=== PATIENT | female | born 1995 | race African-American/Black ===

== ENCOUNTER 2018-11-08 19:38 | Emergency (ER) | payer MEDICAID ==
[~2018-11-08] VITALS: Ht 154.9 cm; Wt 42.7 kg
[2018-11-08] MEDS ORDERED: FAMOTIDINE 20MG/2ML VIAL IV STA (22:53)
[2018-11-08] MEDS ORDERED: ONDANSETRON HCL 4MG/2ML INJ IV STA (22:53)
[2018-11-08] MEDS ORDERED: SODIUM CHLORIDE 0.9% 1,000 ML IV ONE (22:53)
[2018-11-08] MEDS ORDERED: MAGNESIUM/ALUMINUM HYDROXIDE/SIMETHICONE 30ML UDC PO STA (22:53)
[2018-11-08 23:46] LABS: BASOPHILS % 0.2 % (0.0-2.0); EOSINOPHILS % 0.1 % (0.0-5.0); HEMATOCRIT. 39.3 % (36.0-48.0); HEMOGLOBIN. 13.5 g/dL (12.0-16.0); LYMPHOCYTES % 15.5 % (20.0-50.0); MEAN CORPUSCULAR HEMOGLOBIN 27.9 pg (28.0-32.0); MEAN CORPUSCULAR VOLUME 81.2 fL (81.0-99.0); MEAN PLATELET VOLUME 8.4 fl (7.4-10.4); MONOCYTES % 7.8 % (2.0-8.0); NEUTROPHILS % 76.4 % (40.0-76.0); PLATELET 236 x1000/uL (130-400); RED BLOOD CELL COUNT 4.84 mill/uL (4.2-5.4); RED CELL DISTRIBUTION WIDTH 13.7 % (11.6-14.6)
[2018-11-08 23:52] LABS: INR 1.1; PROTHROMBIN TIME 11.4 sec (9.6-11.0)
[2018-11-08 23:54] LABS: CHLORIDE 99 mEq/L (98-107)
[2018-11-08 23:57] LABS: ETHANOL BLOOD < 10 mg/dL
[2018-11-09 00:13] LABS: CLARITY URINE CLOUDY (CLEAR); COLOR URINE YELLOW (YELLOW); KETONES URINE 2+ (NEGATIVE); LEUKOCYTE ESTERASE URINE NEGATIVE (NEGATIVE); NITRITE URINE NEGATIVE (NEGATIVE); OCCULT BLOOD URINE TRACE (NEGATIVE); PROTEIN URINE 1+ (NEGATIVE); SPECIFIC GRAVITY URINE 1.034 (1.005-1.030)
[2018-11-09 00:14] LABS: HCG SCREEN NEGATIVE
[2018-11-09 00:44] LABS: *AMPHETAMINES SCREEN URINE NEGATIVE (NEGATIVE); *BARBITURATES SCREEN URINE NEGATIVE (NEGATIVE); *BENZODIAZEPINES SCREEN URINE NEGATIVE (NEGATIVE); *COCAINE SCREEN URINE NEGATIVE (NEGATIVE)
[2018-11-09 00:45] LABS: METHADONE URINE SCREEN NEGATIVE (NEGATIVE); OPIATES URINE SCREEN NEGATIVE (NEGATIVE); PHENCYCLIDINE URINE SCREEN NEGATIVE (NEGATIVE)
[2018-11-09] MEDS ORDERED: CEFTRIAXONE 1 G PREMIX 50 ML IV ONE (00:45)
[2018-11-09 00:54] LABS: CANNABINOID URINE SCREEN PRESUMTIVE POSITIVE (NEGATIVE)
[2018-11-09] MEDS ORDERED: ONDANSETRON 4MG ODT PO ONE (03:30)
[2018-11-09 03:49] VITALS: BP 129/82
== END 2018-11-09 04:13 | disposition home or self-care (01) ==
LOC: ER 19:38
DX: R53.1 Weakness (principal); N39.0 Urinary tract infection, site not specified; E86.0 Dehydration; F12.10 Cannabis abuse, uncomplicated; Z59.0 Homelessness
CPT/HCPCS: 36415; 80053; 80305; 80320; 81003; 83690; 84703; 85025; 85610; 96361; 96365; 96375; 99283; J0696; J2405; J3490; J7030; Q0162; G0480

== ENCOUNTER 2019-03-19 19:26 | Emergency (ER) | payer MEDICAID ==
[~2019-03-19] VITALS: Ht 152.4 cm; Wt 44.5 kg
[2019-03-19 20:31] LABS: CLARITY URINE CLOUDY (CLEAR); COLOR URINE ORANGE (YELLOW); KETONES URINE 3+ (NEGATIVE); LEUKOCYTE ESTERASE URINE 1+ (NEGATIVE); NITRITE URINE NEGATIVE (NEGATIVE); OCCULT BLOOD URINE 3+ (NEGATIVE); PH URINE 5.5 (4.5-8.0); PROTEIN URINE 2+ (NEGATIVE); SPECIFIC GRAVITY URINE 1.038 (1.005-1.030)
[2019-03-19] MEDS ORDERED: IBUPROFEN 600MG TABLET PO ONE (23:00)
[2019-03-19 23:32] VITALS: BP 124/84
== END 2019-03-19 23:33 | disposition home or self-care (01) ==
LOC: ER 19:26
DX: M54.5 Low back pain (principal); V49.40XA Driver injured in collision with unspecified motor vehicles in traffic accident, initial encounter; Y93.89 Activity, other specified; Y92.410 Unspecified street and highway as the place of occurrence of the external cause
CPT/HCPCS: 81003; 81025; 99283

== ENCOUNTER 2019-12-05 13:24 | Emergency (ER) | payer MEDICAID ==
[~2019-12-05] VITALS: Ht 152.4 cm; Wt 51.0 kg
[2019-12-05] MEDS ORDERED: ONDANSETRON 4MG ODT PO ONE (14:45)
[2019-12-05 16:43] VITALS: BP 128/74
== END 2019-12-05 17:18 | disposition home or self-care (01) ==
LOC: ER 13:24
DX: N94.6 Dysmenorrhea, unspecified (principal)
CPT/HCPCS: 93005; 99283; Q0162

== ENCOUNTER 2020-04-27 07:56 | Emergency (ER) | payer MEDICAID ==
[~2020-04-27] VITALS: Ht 152.4 cm; Wt 57.0 kg
[2020-04-27 08:02] VITALS: BP 116/90
[2020-04-27] MEDS ORDERED: ONDANSETRON 4MG ODT PO STA (08:17)
[2020-04-27 09:30] LABS: BASOPHILS % 0.5 % (0.0-2.0); EOSINOPHILS % 0.4 % (0.0-5.0); HEMATOCRIT. 48.7 % (36.0-48.0); HEMOGLOBIN. 16.4 g/dL (12.0-16.0); LYMPHOCYTES % 43.8 % (20.0-50.0); MEAN CORPUSCULAR HEMOGLOBIN 27.5 pg (28.0-32.0); MEAN CORPUSCULAR VOLUME 81.6 fL (81.0-99.0); MEAN PLATELET VOLUME 9.4 fl (7.4-10.4); MONOCYTES % 9.6 % (2.0-8.0); NEUTROPHILS % 45.7 % (40.0-76.0); PLATELET 245 x1000/uL (130-400); RED BLOOD CELL COUNT 5.97 mill/uL (4.2-5.4); RED CELL DISTRIBUTION WIDTH 13.1 % (11.6-14.6)
[2020-04-27 09:37] LABS: CHLORIDE 94 mEq/L (98-107)
[2020-04-27 09:40] LABS: INR 1.1
[2020-04-27 09:41] LABS: HCG SCREEN NEGATIVE
[2020-04-27] MEDS ORDERED: POTASSIUM CHLORIDE 20MEQ TABLET SR PO ONE (09:45)
[2020-04-27 09:48] LABS: CLARITY URINE CLEAR (CLEAR); COLOR URINE DARK YELLOW (YELLOW); KETONES URINE 2+ (NEGATIVE); LEUKOCYTE ESTERASE URINE TRACE (NEGATIVE); NITRITE URINE NEGATIVE (NEGATIVE); OCCULT BLOOD URINE NEGATIVE (NEGATIVE); PROTEIN URINE 1+ (NEGATIVE); SPECIFIC GRAVITY URINE 1.032 (1.005-1.030)
== END 2020-04-27 10:36 | disposition home or self-care (01) ==
LOC: ER 07:56
DX: N39.0 Urinary tract infection, site not specified (principal); E87.6 Hypokalemia; R11.2 Nausea with vomiting, unspecified
CPT/HCPCS: 36415; 80053; 81003; 81025; 83605; 83690; 84703; 85025; 85610; 93005; 99284; Q0162

== ENCOUNTER 2020-05-29 10:34 | Emergency (ER) | payer MEDICAID ==
[~2020-05-29] VITALS: Ht 152.4 cm; Wt 48.0 kg
[2020-05-29] MEDS ORDERED: METOCLOPRAMIDE HCL 10MG/2ML VIAL IV ONE (11:15)
[2020-05-29] MEDS ORDERED: SODIUM CHLORIDE 0.9% 1,000 ML IV ONE (11:15)
[2020-05-29 11:39] LABS: HEMATOCRIT. 38.6 % (36.0-48.0); HEMOGLOBIN. 13.2 g/dL (12.0-16.0); MEAN CORPUSCULAR HEMOGLOBIN 28.4 pg (28.0-32.0); MEAN CORPUSCULAR VOLUME 82.8 fL (81.0-99.0); MEAN PLATELET VOLUME 8.5 fl (7.4-10.4); PLATELET 262 x1000/uL (130-400); RED BLOOD CELL COUNT 4.66 mill/uL (4.2-5.4); RED CELL DISTRIBUTION WIDTH 13.5 % (11.6-14.6)
[2020-05-29 11:42] LABS: CHLORIDE 101 mEq/L (98-107)
[2020-05-29 11:59] LABS: PLATELET ESTIMATE NORMAL
[2020-05-29 12:04] LABS: B-HCG QUANTITATIVE 114401 mIU/mL (<3)
[2020-05-29] MEDS ORDERED: DOXY1TAB3 MT (13:44)
[2020-05-29 15:49] VITALS: BP 110/58
== END 2020-05-29 15:51 | disposition home or self-care (01) ==
LOC: ER 10:59
DX: O21.8 Other vomiting complicating pregnancy (principal); Z3A.01 Less than 8 weeks gestation of pregnancy
CPT/HCPCS: 36415; 76801; 76817; 80053; 81025; 83690; 84702; 85025; 86850; 86900; 86901; 93005; 96361; 96374; 99285; J2765; J7030; Z7610